=== PATIENT | male | born 1980 ===

== ENCOUNTER 2017-02-18 18:53 | Emergency (ER) | payer SELFPAY ==
[2017-02-18 19:12] VITALS: BP 130/92
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
== END 2017-02-18 19:30 | disposition left against medical advice (07) ==
LOC: DL.ED 18:53
DX: S00.83XA Contusion of other part of head, initial encounter (principal); F17.210 Nicotine dependence, cigarettes, uncomplicated; Y04.0XXA Assault by unarmed brawl or fight, initial encounter
CPT/HCPCS: 99282; 99284